=== PATIENT | male | born 1940 | race Caucasian/White ===

== ENCOUNTER 2016-10-24 08:34 | Day surgery (SDC) | payer MEDICARE ==
[~2016-10-24 08:34] MED LIST: ACETAMINOPHEN 1,000 MG/100 ML VIAL IV SCH; FAMOTIDINE IN SALINE, ISO-OSM 20 MG/50 ML PIGGYBACK IV SCH; LACTATED RINGERS 1,000 ML IV SCH; LIDOCAINE HCL 1% 20 ML VIAL SUBCUT ONE; MIDAZOLAM HCL 2 MG/2 ML SYR IV ONE; ceFAZolin 1 GM in NORMAL SALINE MINI-BAG+ 100 ML IV ONE
[2016-10-24] MEDS ORDERED: BACITRACIN 14 APP/14 GM TUBE TOPICAL ONE (09:10)
[2016-10-24] MEDS ORDERED: BUPIVACAINE/EPI 0.25% 1 VIAL VIAL ONE ×2 (09:10→09:11)
[2016-10-24] MEDS ORDERED: BACITRACIN 50,000 UNITS VIAL IM ONE (09:10)
[2016-10-24] MEDS ORDERED: NORMAL SALINE FLUSH 30 ML ONE (09:12)
[2016-10-24] MEDS ORDERED: FAMOTIDINE IN SALINE, ISO-OSM 50 ML IV ONE (09:18)
[2016-10-24] MEDS ORDERED: ACETAMINOPHEN 1,000 MG/100 ML VIAL IV ONE (09:18)
[2016-10-24] MEDS ORDERED: ceFAZolin 1 GM/10 ML VIAL ONE (09:19)
[2016-10-24] MEDS ORDERED: MIDAZOLAM HCL 2 MG/2 ML VIAL ONE (09:19)
[2016-10-24] MEDS ORDERED: FENTANYL 100 MCG/2 ML VIAL ONE (09:31)
[2016-10-24] MEDS ORDERED: EPHEDrine SULFATE 50 MG/ML VIAL ONE (10:03)
[2016-10-24] MEDS ORDERED: MIDAZOLAM HCL 2 MG/2 ML SYR IV ONE (10:13)
[2016-10-24] MEDS ORDERED: MORPHINE SULFATE 10 MG/ML SYR IV PRN (10:13)
[2016-10-24] MEDS ORDERED: HYDROmorphone HCL 1 MG/ML SYR IV PRN (10:13)
[2016-10-24] MEDS ORDERED: ONDANSETRON HCL 4 MG/2 ML VIAL IV PRN (10:13)
[2016-10-24] MEDS ORDERED: ceFAZolin 1 GM in NORMAL SALINE MINI-BAG+ 100 ML IV ONE (10:13)
[2016-10-24] MEDS ORDERED: LIDOCAINE HCL 1% 20 ML VIAL SUBCUT ONE (10:13)
[2016-10-24] MEDS ORDERED: FENTANYL 100 MCG/2 ML VIAL IV PRN (10:13)
[2016-10-24] MEDS ORDERED: LACTATED RINGERS 1,000 ML IV SCH ×2 (10:13→11:00)
[2016-10-24] MEDS ORDERED: DEXAMETHASONE 10 MG/ML VIAL ONE (10:27)
[2016-10-24 11:14] VITALS: TEMP 98.8
[2016-10-24 11:32] VITALS: PULSE 80
[2016-10-24 11:47] VITALS: BP 158/91; RESP 16; O2SAT 94
--- NOTE | 2016-10-24 14:13 | OPERATIVE REPORT ---
DATE OF SURGERY: 10/24/16 SURGEON: Aryan Valenzuela DO ANESTHESIA: General. PREOPERATIVE DIAGNOSIS: Right knee osteoarthritis with medial and lateral meniscal tears and anterior cruciate ligament tear. Popliteal cyst. POSTOPERATIVE DIAGNOSIS: Right knee osteoarthritis with medial and lateral meniscal tears and anterior cruciate ligament tear. Popliteal cyst. OPERATION PERFORMED: Right knee arthroscopy. ESTIMATED BLOOD LOSS: Minimal. TOTAL TOURNIQUET TIME: 49 minutes. PROCEDURE NOTE: The patient was brought to the operating room suite and after administration of general anesthesia, the right lower extremity was prepped and draped in a sterile fashion. A well padded tourniquet was applied to the right proximal thigh. An anterolateral incision was made first after first injecting 0.25% bupivacaine and the anteromedial incision was made with its respective portal after first inserting a spinal needle under direct visualization arthroscopically. An accessory inferior anterior lateral portal was made for optimal instrumentation placement. A diagnostic arthroscopy was performed and revealed the above findings. The patient had extensive synovitis throughout all three compartments of his knee. He had a medial and lateral meniscal tear which was debrided arthroscopically with arthroscopic instrumentations. The lateral compartment had bone on bone articulation and the medial compartment had grade 3 and 4 chondromalacia throughout. Also noted was grade 3 and 4 chondromalacia of the patellar trochlear compartment. These areas of chondromalacia were debrided to remove all loose fragments and the synovitis was removed throughout the knee. The patient did have a large plica band on the superolateral aspect of the femoral condyle which was also removed. The patients lateral meniscal tear extended all the way back to the capsule and had a significant amount of fraying which was debrided arthroscopically back to a stable margin to the capsule. There was very little meniscal tissue left in the lateral compartment. The knee was drained of all arthroscopic fluid and was closed utilizing 3-0 interrupted nylon with simple sutures. The knee was then injected with 10 mL of 0.25% bupivacaine with epinephrine and 10 mg of dexamethasone. The incisions were dressed with bacitracin ointment, Xeroform, 4x4s, ABDs, cast padding and an Estiven bandage. The patient was transferred from the operating room suite to the recovery room in stable condition. CAESAR
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
== END 2016-10-24 12:10 | disposition home or self-care (01) ==
LOC: SDS 08:34
PROVIDERS: ATTEND Orthopaedic Surgery
DX: M23.261 Derangement of other lateral meniscus due to old tear or injury, right knee (principal); S83.8X1A Sprain of other specified parts of right knee, initial encounter; B37.0 Candidal stomatitis; Z87.39 Personal history of other diseases of the musculoskeletal system and connective tissue; G47.31 Primary central sleep apnea; M10.9 Gout, unspecified; C61 Malignant neoplasm of prostate; G47.00 Insomnia, unspecified; M54.5 Low back pain; M53.9 Dorsopathy, unspecified; G57.31 Lesion of lateral popliteal nerve, right lower limb; Z85.810 Personal history of malignant neoplasm of tongue
CPT/HCPCS: 29876; 29880; J0690; J1100; J2250; J3010

== ENCOUNTER 2016-11-08 17:53 | Emergency (ER) | payer MEDICARE ==
--- NOTE | 2016-11-08 19:51 | ER NURSING DOCUMENTATION ---
Nurse's Notes [facility] Name:Candy Cazares Age:76 yrs Sex:Male :1940 Arrival Date:11/08/2016 Time:17:53 Bed5 Private MD:Raheem Erickson Diagnosis:Knee Effusion Presentation: 11/08 17:55 Acuity: RAJ 3 la 17:58 Presenting complaint: Patient states: right surgery on October 24, 2016 and was doing well. la Today he went to stand up around 1330 right knee locked up and was unable to bear weight on it. Diagnosed with a blood clot in his right calm on October 27, 2016. Transition of care: Home. 17:58 Method Of Arrival: Private Vehicle la Triage Assessment: 18:03 General: Appears comfortable, Behavior is appropriate for age, cooperative, pleasant. la Pain: Complains of pain in right mid thigh down to ankle. EENT: No deficits noted. Neuro: Level of Consciousness is awake, alert, Oriented to person, place, time, event. Cardiovascular: No deficits noted. Respiratory: No deficits noted. GI: No deficits noted. : No deficits noted. Derm: No deficits noted. Musculoskeletal: Circulation, motion, and sensation intact Capillary refill < 3 seconds Range of motion intact in right knee splint on right lower leg for drop foot. Historical: - Allergies: No known drug Allergies; - Home Meds: 1. fludrocortisone oral 2. citalopram oral 3. TRAZADONE 4. Prevacid Oral - PMHx: HEAD AND THROAT CANCER; Fecal Impaction (December 01, 2013); Constipation (December 01, 2013); - PSHx: THROAT SURGERIES; GASTRIC TUBE; - Tetanus: < 10 years. - Ebola Screening: : Patient negative for fever greater than or equal to 101.5 degrees Fahrenheit, and additional compatible Ebola Virus Disease symptoms. - Immunization history: Flu Vaccine < 1 year. - Social history: Smoking status: Patient states was never smoker of tobacco. Screenin:07 Infectious Disease Risk None. Abuse screen: Denies threats or abuse. Nutritional la screening: No deficits noted. Assessment: 18:07 See Triage Assessment done by same RN. la Vital Signs: 18:00 BP 158 / 86 LA Sitting (auto/reg); Pulse 81 RA; Resp 16 S; Temp 98.4(O); Pulse Ox 97% em3 on R/A; Weight 86.18 kg (R); Height 6 ft. 3 in. (190.50 cm) (R); Pain 7/10; 19:48 BP 138 / 89 LA Sitting; Pulse 72; Resp 18; Pulse Ox 98% on R/A; Pain 7/10; la 18:00 Body Mass Index 23.75 (86.18 kg, 190.50 cm) em3 ED Course: 17:54 Patient arrived in ED. ds 17:54 Raheem Erickson MD is Private Physician. ds 17:55 Catarina Mejia is Primary Nurse. la 17:56 Triage completed. la 18:04 Valuables Remains with patient Patient has correct armband on for positive em3 identification. Bed in low position. Call light in reach. Side rails up X 1. 18:07 Door closed. Pillow given. pillow under right lower leg. la 18:09 Gio Peck MD is Attending Physician. tl1 18:33 Port Xray Completed. vadim 19:37 José Manuel Earl MD is Referral Physician. tl1 Administered Medications: 19:41 Drug: Dilaudid 1 mg; Route: IM; Site: left vastus lateralis; la 19:48 Follow up: Response: No adverse reaction la 19:44 Drug: Zofran 4 mg; Route: PO; la 19:48 Follow up: Response: No adverse reaction la Outcome: 19:37 Discharge ordered by MD. tl1 19:49 Discharged to home via wheelchair, with family. la 19:49 Condition: good 19:49 Discharge Assessment: Patient awake, alert and oriented x 3. No cognitive and/or functional deficits noted. Patient verbalized understanding of disposition instructions. 19:49 Discharge instructions given to patient, significant other, Instructed on discharge instructions, follow up and referral plans. Demonstrated understanding of instructions. 19:51 Patient left the ED. la 06 12:09 Discharge F/U Call: Spoke with: patient. spouse with permission of patient. other: st Name: pt is in significant pain and that they can not get an appointment with ortho until next week. pt's is frustrated with this. I checked with scheduling downstairs and the orthopedic tech is suppose to call pt tomorrow but at this point there are no openings. This information was passed on to the pt and he was told that if at any point he felt he needed to be seen in the ER again we were here. Signatures: Aria Jerry, GILBERTO MACIAS st ot, Olimpia, Aidan Montalvo, Deborah Lagunas, Theo em3 Catarina Mejia Tom, MD MD tl1
--- NOTE | 2016-11-08 19:51 | ER PHYSICIAN DOCUMENTATION ---
Physician Documentation [facility] Name:Candy Cazares Age:76 yrs Sex:Male :1940 Arrival Date:11/08/2016 Time:17:53 Bed5 Private MD:Raheem Erickson ED, Tom Disposition: 11/08 20:00 Chart complete. tl1 Disposition: 11/08/16 19:37 Discharged to Home/Self Care. Impression: Knee Effusion. - Condition is Good. - Discharge Instructions: KNEE EFFUSION. - Medical Reconciliation form form. - Follow up: José Manuel Barrientos MD; When: 1 - 2 days; Reason: Recheck today's complaints, Continuance of care. - Problem is new. - Symptoms have improved. - Notes: USE YOUR CANE OR A WALKER FOR GETTING AROUND HOME. ELEVATE YOUR RIGHT KNEE MUCH POSSIBLE. CALL DR BARRIENTOS'S OFFICE TOMORROW TO MAKE AN APPOINTMENT TO SEE HIM ON SUNDAY. IF THE PAIN AND SWELLING CONTINUE, HE MAY DRAIN THE KNEE TO HELP WITH THE PAIN. HPI: 18:15 This 76 yrs old Male presents to ER via Private Vehicle with complaints of tl1 Knee Pain - RT. 18:30 The patient presents with pain. The complaints affect the right knee. Context: must tl1 have assistance. 18:30 He had laparascopic right knee surgery with Dr Valenzuela on 10/24 to drain a cyst tl1 (??Wild's?). On 10/27 he was diagnosed with a DVT and started on Pradaxa. Since then he has been doing well until today at about 1330 when he noted increased pain. He is unable to reliably describe to me the circumstances of the increased pain. He does say the knee is much more swollen and painful, mostly just proximal and lateral to the patella. No f/c/s. No CP or SOB.. Historical: - Allergies: No known drug Allergies; - Home Meds: 1. fludrocortisone oral 2. citalopram oral 3. TRAZADONE 4. Prevacid Oral - PMHx: HEAD AND THROAT CANCER; Fecal Impaction (December 01, 2013); Constipation (December 01, 2013); - PSHx: THROAT SURGERIES; GASTRIC TUBE; - Tetanus: < 10 years. - Ebola Screening: : Patient negative for fever greater than or equal to 101.5 degrees Fahrenheit, and additional compatible Ebola Virus Disease symptoms. - Immunization history: Flu Vaccine < 1 year. - Social history: Smoking status: Patient states was never smoker of tobacco. ROS: 19:00 MS/extremity: Positive for decreased range of motion, pain, swelling, tenderness, tl1 Negative for ecchymosis, erythema, rash, warmth. 19:00 All other systems are negative. Exam: 19:00 Constitutional: The patient appears alert, awake, non-toxic, well developed, well tl1 hydrated, well groomed, well nourished, in obvious distress, moderately distressed, in obvious pain, restless, uncomfortable. 19:00 Head/face: Exam is negative for acute changes. 19:00 Cardiovascular: Rate: normal. 19:00 Respiratory: Respirations: normal. 19:00 Musculoskeletal/extremity: Extremities: grossly normal except: noted in the right knee: pain, swelling, tenderness, Joints: All joints are normal except effusion, pain at rest, painful range of motion, swelling, tenderness. Vital Signs: 18:00 BP 158 / 86 LA Sitting (auto/reg); Pulse 81 RA; Resp 16 S; Temp 98.4(O); Pulse Ox 97% em3 on R/A; Weight 86.18 kg (R); Height 6 ft. 3 in. (190.50 cm) (R); Pain 7/10; 19:48 BP 138 / 89 LA Sitting; Pulse 72; Resp 18; Pulse Ox 98% on R/A; Pain 7/10; la 18:00 Body Mass Index 23.75 (86.18 kg, 190.50 cm) em3 MDM: 18:09 Patient medically screened. tl1 20:00 Data reviewed: vital signs, nurses notes, old medical records, and as a result, I will tl1 discharge patient. Data reviewed: radiologic studies, plain films. Test interpretation: by ED physician or midlevel provider: plain radiologic studies. Counseling: I had a detailed discussion with the patient and/or guardian regarding: the historical points, exam findings, and any diagnostic results supporting the discharge/admit diagnosis, radiology results, the need for outpatient follow up, to return to the emergency department if symptoms worsen or persist or if there are any questions or concerns that arise at home. Physician consultation: José Manuel Barrientos MD was called at 20:00, was contacted at 20:00, regarding patient's condition, outpatient follow-up, and will see patient in office, in 2-3 days. Special discussion: I told him that this pain is probably from the large effusion and that he has probably bled into the knee. Dr Barrientos can see him in 2 days in clinic and consider arthrocentesis. For the time being, I recommended elevation, compression, rest, and increased analgesia, with attention as well to preventing constipation.. 11/09 07:12 Order name: KNEE; [address] [place] [id number] EDMS Dispensed Medications: 19:41 Drug: Dilaudid 1 mg; Route: IM; Site: left vastus lateralis; la 19:48 Follow up: Response: No adverse reaction la 19:44 Drug: Zofran 4 mg; Route: PO; la 19:48 Follow up: Response: No adverse reaction la Signatures: Catarina Mejia Tom, MD MD tl1
[2016-11-08] MEDS ORDERED: ONDANSETRON ODT 4 MG TAB.RAPDIS ONE (19:54)
--- NOTE | 2016-11-09 06:06 | RADIOLOGY REPORT ---
Three views of the right knee demonstrates no displaced fracture, dislocation or bony destructive change. Marked tricompartmental degenerative joint disease is noted, most severe in the lateral compartment. There is evidence of a joint effusion. No other abnormality is identified. IMPRESSION: Marked tricompartmental degenerative joint disease with a joint effusion. The findings were personally reviewed with Dr. Peck at 1915 hours on 2016. CAESAR
== END 2016-11-08 19:51 | disposition home or self-care (01) ==
LOC: ER 17:53
DX: M25.461 Effusion, right knee (principal); M25.561 Pain in right knee; Z98.890 Other specified postprocedural states; Z79.899 Other long term (current) drug therapy
CPT/HCPCS: 73562; 96372; 99283; J1170

== ENCOUNTER 2016-11-09 21:51 | Emergency (ER) | payer MEDICARE ==
--- NOTE | 2016-11-09 23:09 | ER PHYSICIAN DOCUMENTATION ---
Physician Documentation [facility] Name:Candy Cazares Age:76 yrs Sex:Male :1940 Arrival Date:11/09/2016 Time:21:51 Bed6 Private MD:Raheem Erickson ED, [place] Disposition: 11/09/16 22:44 Discharged to Home/Self Care. Impression: Hemarthrosis. - Condition is Good. - Discharge Instructions: Fluid on the Knee - KNEE EFFUSION. - Medical Reconciliation form form. - Follow up: José Manuel Earl MD; When: Tomorrow; Reason: Continuance of care. - Problem is an acute exacerbation. - Symptoms are unchanged. HPI: 11/09 22:38 This 76 yrs old Male presents to ER via Walk In with complaints of Knee sc Injury - RIGHT. 22:38 The patient presents with pain, swelling. The complaints affect the right knee. sc Context: the patient can partially bear weight, the patient is able to ambulate, can ambulate using a cane. Onset: The symptom(s)/episode began/occurred 15 day(s) ago, and became worse 2 day(s) ago. post op arthroscopy and dvt on Eliquis, couldn't get into ortho clinic past couple days. Historical: - Allergies: No known drug Allergies; - Tetanus: < 10 years. - Ebola Screening: : Patient denies exposure to infectious person. Patient denies travel to an Ebola-affected area in the 21 days before illness onset. . - Immunization history: Flu Vaccine < 1 year. - Social history: Smoking status: Patient states was never smoker of tobacco. Patient uses alcohol but reports only rare drinking. ROS: 22:40 Constitutional: Negative for fever, chills, and weight loss. sc Eyes: Negative for injury, pain, redness, and discharge. Neck: Negative for injury, pain, and swelling. Back: Negative for injury and pain. Skin: Negative for injury, rash, and discoloration. 22:40 Neuro: Negative for headache, weakness, numbness, tingling, and seizure. sc 22:40 MS/extremity: Positive for pain, swelling, Negative for paresthesias, tingling. Exam: Constitutional: This is a well developed, well nourished patient who is awake, alert, and in no acute distress. Head/Face: Normocephalic, atraumatic. Eyes: Pupils equal round and reactive to light, extra-ocular motions intact. Lids and lashes normal. Conjunctiva and sclera are non-icteric and not injected. Cornea within normal limits. Periorbital areas with no swelling, redness, or edema. Skin: Warm, dry with normal turgor. Normal color with no rashes, no lesions, and no evidence of cellulitis. 22:40 Neuro: Awake and alert, GCS 15, oriented to person, place, time, and situation. az Cranial nerves II-XII grossly intact. Motor strength 5/5 in all extremities. Sensory grossly intact. Cerebellar exam normal. Normal gait. 22:40 Musculoskeletal/extremity: Extremities: grossly normal except: pain, swelling, ROM: limited active range of motion due to pain, limited passive range of motion due to pain, Circulation is intact in all extremities. Sensation intact. Vital Signs: 21:59 BP 162 / 94 RA Sitting (auto/reg); Pulse 98 RA; Resp 16 S; Temp 98.2(O); Pulse Ox 93% em3 on R/A; Weight 86.18 kg (R); Height 6 ft. 3 in. (190.50 cm) (R); Pain 9/10; 21:59 Body Mass Index 23.75 (86.18 kg, 190.50 cm) em3 MDM: 21:57 Patient medically screened. az 22:41 Differential diagnosis: doubt infxn, prob hemarthrosis. Data reviewed: vital signs, az nurses notes, old medical records, and as a result, I will initiate a consult, with an orthopedic surgeon. Physician consultation: José Manuel Earl MD was called at 22:41, was contacted at 22:41, regarding patient's condition, outpatient follow-up, tomorrow. 11/09 23:08 Order name: ORTHO: Crutches & Training; Complete Time: 23:08 lb Dispensed Medications: No medications were administered Signatures: Oskar Monroe MD MD az Joanna Smith
--- NOTE | 2016-11-09 23:09 | ER NURSING DOCUMENTATION ---
Nurse's Notes [facility] Name:Candy Cazares Age:76 yrs Sex:Male :1940 Arrival Date:11/09/2016 Time:21:51 Bed6 Private MD:Raheem Erickson Diagnosis:Hemarthrosis Presentation: 11/09 21:55 Acuity: RAJ 4 rh 22:03 Presenting complaint: Patient states: right knee pain and swelling for 2 days. hx lb laparoscopic knee surgery on 10/24. also found to have dvt. pain to lateral aspect. Transition of care: Home. Notified ED Physician of Dr. Monroe notified. 22:03 Method Of Arrival: Walk In lb Triage Assessment: 22:21 General: Appears uncomfortable, Behavior is appropriate for age, pleasant. Pain: lb Complains of pain in right knee Pain does not radiate. Pain currently is 9 out of 10 on a pain scale. Musculoskeletal: Circulation, motion, and sensation intact Capillary refill < 3 seconds Swelling present in right knee. Injury Description: swelling. Historical: - Allergies: No known drug Allergies; - Tetanus: < 10 years. - Ebola Screening: : Patient denies exposure to infectious person. Patient denies travel to an Ebola-affected area in the 21 days before illness onset. . - Immunization history: Flu Vaccine < 1 year. - Social history: Smoking status: Patient states was never smoker of tobacco. Patient uses alcohol but reports only rare drinking. Screenin:22 Infectious Disease Risk None. Abuse screen: Denies threats or abuse. Denies injuries lb from another. Nutritional screening: No deficits noted. Assessment: 22:22 See Triage Assessment done by same RN. lb Vital Signs: 21:59 BP 162 / 94 RA Sitting (auto/reg); Pulse 98 RA; Resp 16 S; Temp 98.2(O); Pulse Ox 93% em3 on R/A; Weight 86.18 kg (R); Height 6 ft. 3 in. (190.50 cm) (R); Pain 9/10; 21:59 Body Mass Index 23.75 (86.18 kg, 190.50 cm) em3 ED Course: 21:54 Patient arrived in ED. ma1 21:54 Raheem Erickson MD is Private Physician. ma1 21:55 Triage completed. rh 21:57 Oskar Monroe MD is Attending Physician. wv 22:00 Valuables Remains with patient Patient has correct armband on for positive em3 identification. Bed in low position. Call light in reach. Side rails up X 1. 22:03 Joanna Smith is Primary Nurse. 22:43 José Manuel Earl MD is Referral Physician. wv 23:06 Crutch training done. lb Administered Medications: No medications were administered Outcome: 22:44 Discharge ordered by . wv 23:06 Discharged to home ambulatory. 23:06 Condition: stable 23:06 Discharge Assessment: Patient awake, alert and oriented x 3. No cognitive and/or functional deficits noted. Patient verbalized understanding of disposition instructions. 23:06 Instructed on crutch walking, discharge instructions, follow up and referral plans. 23:08 Patient left the ED. 11/11 09:20 Discharge F/U Call: Spoke with: patient. other: Name: pt is feeling much better. st Neither he nor his have any questions or concerns. Signatures: Aria Jerry, RN Oskar Angel MD MD wv Theo Lagunas Rachel rh Bollock, Lynda lb Addison, Melissa ma1
== END 2016-11-09 23:09 | disposition home or self-care (01) ==
LOC: ER 21:51
DX: M25.061 Hemarthrosis, right knee (principal); Z98.890 Other specified postprocedural states; Z86.718 Personal history of other venous thrombosis and embolism; Z79.01 Long term (current) use of anticoagulants; Z79.899 Other long term (current) drug therapy
CPT/HCPCS: 99282; 99283